=== PATIENT | male | born 1970 | race Caucasian/White ===

== ENCOUNTER 2023-03-25 06:22 | Day surgery (SDC) | payer OTHER, MEDICAID ==
[~2023-03-25] VITALS: Ht 180.3 cm; Wt 105.2 kg
[2023-03-25] MEDS ORDERED: SIMETHICONE 40 MG/0.6 ML ML ONE (07:10)
[2023-03-25] MEDS ORDERED: MEPERIDINE 50 MG/ML VIAL ONE (07:10)
[2023-03-25] MEDS ORDERED: MIDAZOLAM HCL 5 MG/5 ML VIAL ONE (07:10)
[2023-03-25 12:45] VITALS: BP_SYST 118
== END 2023-03-25 08:45 | disposition home or self-care (01) ==
LOC: SDS 06:22 → SMU 06:22 → SDS 08:45
PROVIDERS: ATTEND Internal Medicine Gastroenterology
DX: R19.4 Change in bowel habit (principal); K62.1 Rectal polyp; K64.8 Other hemorrhoids; K21.9 Gastro-esophageal reflux disease without esophagitis; Z86.010 Personal history of colon polyps; I25.10 Atherosclerotic heart disease of native coronary artery without angina pectoris; E11.9 Type 2 diabetes mellitus without complications; Z95.810 Presence of automatic (implantable) cardiac defibrillator; I10 Essential (primary) hypertension; Z79.82 Long term (current) use of aspirin; Z79.84 Long term (current) use of oral hypoglycemic drugs; Z79.899 Other long term (current) drug therapy
CPT/HCPCS: 45380; 82962; 88305; 99152; G0378; J2250; J2175